=== PATIENT | female | born 1950 | race Caucasian/White ===

== ENCOUNTER → 2016-07-12 | Outpatient (CLI) | payer MEDICARE, OTHER ==
[~2016-07-12] MED LIST: ATORVASTATIN CA20 MG PO; CYANOCOBALAM1000 MCG PO; PANTOPRAZOLE SO40 MG PO; PAXIL10 MG PO; VALSARTAN-HCTZ1 EACH PO; VIVELLE-DOT0.1 MG TD
== END | disposition home or self-care (01) ==
LOC: CDC 11:01
DX: Z01.810 Encounter for preprocedural cardiovascular examination (principal); G56.01 Carpal tunnel syndrome, right upper limb; M79.641 Pain in right hand; I10 Essential (primary) hypertension
CPT/HCPCS: 93000